=== PATIENT | male | born 1960 | race Asian ===

== ENCOUNTER 2023-08-25 16:19 | Emergency (ER) | payer MEDICARE ==
[~2023-08-25] VITALS: Ht 162.6 cm; Wt 65.5 kg
[2023-08-25] MEDS ORDERED: CLOPIDOGREL300 M1 (16:40)
[2023-08-25] MEDS ORDERED: NORVASC10 MG (16:41)
[2023-08-25 16:45] LABS: Calcium, Ionized (POC) 0.97 mmol/L (1.10-1.46); Chloride (POC) 96 mmol/L (98-108); Creatinine (POC) 1.7 mg/dL (0.8-1.3); Glucose (ISTAT POC) 228 mg/dL (70-99); Potassium (POC) 3.1 mmol/L (3.5-5.5); Sodium (POC) 130 mmol/L (135-148); Total CO2 (POC) 19 mmol/L (21-32)
[2023-08-25 16:46] LABS: Base Excess Venous -8.9 mmol/L; Bicarbonate Venous 17.5 mmol/L (24.0-30.0); PCO2 Venous 36.3 mmHg (38-42); pH Blood Venous 7.29 (7.34-7.37)
[2023-08-25 16:53] LABS: BASOPHILS ABSOLUTE AUTO 0.04 K/mm3 (0.00-0.23); BASOPHILS PERCENT AUTO 0 % (0-2); EOSINOPHILS PERCENT AUTO 0 % (0-6); Hematocrit 48.6 % (37.0-53.0); Hemoglobin 16.9 g/dL (13.5-17.5); IMMATURE GRAN ABSOLUTE AUTO 0.11 K/mm3 (0.00-0.10); IMMATURE GRAN PERCENT AUTO 1 % (0-1); LYMPHOCYTES ABSOLUTE AUTO 2.11 K/mm3 (0.84-5.20); LYMPHOCYTES PERCENT AUTO 9 % (21-46); MONOCYTES ABSOLUTE AUTO 0.53 K/mm3 (0.16-1.47); MONOCYTES PERCENT AUTO 2 % (4-13); Mean Corpuscular HGB 30.7 pg (26.0-34.0); Mean Corpuscular HGB Conc 34.8 g/dL (31.5-36.5); Mean Corpuscular Volume 88 fL (80-100); Mean Platelet Volume 8.8 fL (9.1-12.4); NEUTROPHILS ABSOLUTE AUTO 19.96 K/mm3 (1.96-9.15); NEUTROPHILS PERCENT AUTO 88 % (41-73); Platelet Count 282 K/mm3 (150-400); RDW Coefficient Variation 12.6 % (11.7-14.2); RDW Standard Deviation 40.7 fL (35.1-46.3); White Blood Cell Count 22.75 K/mm3 (4.00-11.30)
[2023-08-25 17:11] LABS: D-Dimer, Quantitative 2.05 mg/L FEU (0.00-0.52); International Normalized Ratio 1.05
[2023-08-25 17:23] LABS: Albumin, Blood 3.7 g/dL (3.4-5.0); Albumin/Globulin Ratio 0.8 (0.8-1.8); Bilirubin, Total 0.5 mg/dL (0.1-1.0); Bun/Creatinine Ratio 10.1 (12.0-20.0); Calcium, Blood 9.6 mg/dL (8.5-10.1); Creatinine, Blood 1.39 mg/dL (0.60-1.20); Globulin, Blood 4.7 g/dL (2.2-4.0); Potassium, Blood 3.3 mmol/L (3.5-5.5); Total Protein, Blood 8.4 g/dL (6.4-8.2)
[2023-08-25 17:24] LABS: Influenza A, PCR NEGATIVE (NEGATIVE); Influenza B, PCR NEGATIVE (NEGATIVE); Resp Syncytial Virus, PCR NEGATIVE (NEGATIVE); SARS-Cov-2 (COVID-19) PCR, MMC NEGATIVE (NEGATIVE)
[2023-08-25 19:15] VITALS: BP 119/88
== END 2023-08-25 19:55 | disposition short-term general hospital (02) ==
LOC: ER 16:19
PROVIDERS: Emergency Medicine; Physician Assistant
DX: J96.91 Respiratory failure, unspecified with hypoxia (principal); I21.19 ST elevation (STEMI) myocardial infarction involving other coronary artery of inferior wall; I50.1 Left ventricular failure, unspecified; E87.21 Acute metabolic acidosis; Z79.899 Other long term (current) drug therapy
CPT/HCPCS: 0241U; 71045; 71260; 80047; 80053; 82803; 83605; 83735; 83880; 84145; 84484; 85014; 85025; 85379; 85520; 85610; 85730; 86140; 93005; 93010; 94660; 96365-59; 96366; 96368; 96375-59; 96376-59; 99285-25; A9270; J0612; J1644; J2405; J3010; J3101; Q9967